=== PATIENT | female | born 1930 | race Caucasian/White ===

== ENCOUNTER → 2017-02-25 | Outpatient (CLI) | payer MEDICARE, OTHER ==
[~2017-02-25] MED LIST: ALPHA LIPOIC A200 M2 PO; ALPHA LIPOIC A200 MG PO; AMOXICILLIN/CLA1 TA1 PO; ANUSOL-HC SUPPO25 MG RC; ASPIRIN 32325 MG/TAB PO; B-121000 MCG PO; B-12500 MCG PO; BETAPACE 120MG120 MG PO; BUSPAR10 MG PO; CALCIUM500 MG PO; CARDIZEM CD 24240 MG PO; CENTRUM SILVER1 CTB PO; CEPHALEXIN500 M1 PO; CLARITIN10 MG PO; COLON HERBAL CL1 CAP PO; COUMADIN 22.5 MG/TAB PO; COUMADIN 5MG5 MG/TAB PO; CRANBERRY FRUI405 MG PO; CREON1 CAP PO; DILTIAZEM CD240 MG PO; ESTRACE0.1 MG/GM VG; ESTRADIOL VAG42.5 GM VG; FISH OIL 1000MG1 CAP PO; FLONASE NASAL S16 GM NS; FLONASEALLERGY NS; GLUCOSAMIN 500 PO; GLUCOSAMINE & C1 CA1 PO; GLUCOSAMINE & C1 CA2 PO; HYZAAR 25 MG-101 TAB PO; HYZAAR 50-12.1 UDTAB PO; K-DUR 10 MEQ T10 MEQ PO; KLOR-CON 1010 MEQ PO; LEVAQUIN 750MG750 M1 PO; LEXAPRO 5MG5 MG PO; LIPOIC ACID, DL1 POW; LOSARTAN POTASS1 TA2 PO; MELATONIN1 MG PO; MELATONIN5 M1 PO; MULTAQ400 MG PO; NATURAL E400 IU PO; NATURAL POTASS595 MG; NATURE S BLEND PO; NORCO 325 MG-51 TAB PO; NORVASC 5MG5 MG/TAB PO; OMEGA 31000 MG PO; OMEPRAZOLE20 MG PO; OS-CAL 500 + D1 TAB PO; OYSCO 500500 M1 PO; PACERONE200 MG PO; PACERONE400 MG PO; PARCOPA 25/101 UDTAB PO; POTASSIUM595 MG PO; PREMARIN0.3 MG PO; PRILOSEC 20MG20 MG PO; PROCTOSOL HC RC; PROMETHAZINE12.5 M5 PO; REQUIP 1MG T1 MG/TAB PO; SALINE 45 ML45 ML NS; SINEMET 25/101 UDTAB PO; TESSALON P100 MG/CAP PO; TIAZAC180 MG PO; TIAZAC240 MG PO; TYLENOL 500MG500 MG PO; ULTRAM 50MG TAB50 MG PO; VITAMIN A PO; VITAMIN A10k PO; VITAMIN B-1000 MCG/T PO; VITAMIN B-6100 MG PO; VITAMIN B-650 MG PO; VITAMIN C500 MG PO; VITAMIN D1000 IU PO; VITAMIN E 400 U4001 PO; XANAX .25M0.25 MG/TA PO; ZOFRAN ODT4 MG PO; [UNRECOGNIZED DRUG - OTHER] PO; [UNRECOGNIZED DRUG - OTHER] PO; [UNRECOGNIZED DRUG - REMARK] PO
== END ==
LOC: MC.RAD 15:20
DX: Z12.31 Encounter for screening mammogram for malignant neoplasm of breast (principal)

== ENCOUNTER → 2017-05-17 | Outpatient (CLI) | payer MEDICARE, OTHER | LOC: SUN.DIA 08:59 | DX: E11.9 Type 2 diabetes mellitus without complications (principal); I10 Essential (primary) hypertension; Z68.26 Body mass index [BMI] 26.0-26.9, adult; Z71.3 Dietary counseling and surveillance ==

== ENCOUNTER 2017-09-09 11:00 | Emergency (ER) | payer MEDICARE, OTHER ==
[~2017-09-09] VITALS: Ht 154.9 cm; Wt 53.6 kg
[2017-09-09 11:04] VITALS: TEMP 97.7
[2017-09-09 12:48] LABS: BASO % 0.6 % (0.0-2.0); EOS # 0.1 (0.0-0.7); EOS % 1.3 % (0-4.0); GRAN # 3.5 (1.4-6.5); GRAN % 65.7 % (42.2-75.2); HEMOGLOBIN 13.2 g/dl (12.5-16.0); LYMPH # 1.1 (1.2-3.4); MEAN CELL VOLUME 94 fl (80.0-100.0); MEAN CORPUSCULAR HEMOGLOBIN 31 pg (27.0-31.0); MEAN CORPUSCULAR HGB CONC 33 g/dl (33.0-37.0); MEAN PLATELET VOLUME 9.5 fl (7.4-10.4); MONO # 0.7 (0.1-0.6); MONO % 12.2 % (1.7-9.3); PLATELET COUNT 237 K/mm3 (130-400); RED BLOOD COUNT 4.27 M/mm3 (4.10-5.30)
[2017-09-09 13:05] LABS: PROTHROMBIN TIME 109.4 SECONDS (9.7-12.8)
[2017-09-09] MEDS ORDERED: ZEBETA10 MG PO (13:05)
[2017-09-09] MEDS ORDERED: FLOVENT DI100 MCG/Ac IH (13:05)
[2017-09-09 15:08] VITALS: BP 140/78; PULSE 60
[2017-09-12] MEDS ORDERED: COUMADIN 5MG5 MG/TAB PO (09:12)
== END 2017-09-09 15:27 | disposition home or self-care (01) ==
LOC: COL.ER 11:00
PROVIDERS: Emergency Medicine
DX: T45.511A Poisoning by anticoagulants, accidental (unintentional), initial encounter (principal); I48.91 Unspecified atrial fibrillation; J44.9 Chronic obstructive pulmonary disease, unspecified; Z79.01 Long term (current) use of anticoagulants

== ENCOUNTER → 2017-12-08 | Outpatient (CLI) | payer MEDICARE, OTHER ==
[~2017-12-08] MED LIST changes: +ALDACTONE 25MG25 M1 PO; +BETAPACE 80MG80 MG PO; +FLOVENT DI100 MCG/Ac IH; +LOVENOX 6060 MG/0.6 SQ; +ZEBETA10 MG PO
== END ==
LOC: SUN.DIA 09:55
DX: E11.9 Type 2 diabetes mellitus without complications (principal); I10 Essential (primary) hypertension; Z68.25 Body mass index [BMI] 25.0-25.9, adult; Z71.3 Dietary counseling and surveillance
CPT/HCPCS: G0108

== ENCOUNTER 2017-12-27 07:30 | Day surgery (SDC) | payer MEDICARE, OTHER ==
[~2017-12-27] VITALS: Ht 154.9 cm; Wt 52.7 kg
[~2017-12-27 07:30] MED LIST changes: -MELATONIN1 MG PO
[2017-12-27] MEDS ORDERED: EPA FISH OIL1 SGL PO (08:21)
[2017-12-27 08:37] VITALS: BP 132/67; PULSE 66; TEMP 97.4
[2017-12-27 08:46] LABS: INR 1.2 (0.8-3.0); PROTHROMBIN TIME 14.5 SECONDS (9.7-12.8)
[2017-12-27 09:35] VITALS: BP 122/75; PULSE 68; TEMP 97.6
[2017-12-27 09:50] VITALS: BP 160/98; PULSE 72
[2017-12-27 10:05] VITALS: BP 118/69; PULSE 67
[2017-12-27 10:20] VITALS: BP 127/63; PULSE 65
== END 2017-12-27 11:10 | disposition home or self-care (01) ==
LOC: SDCO 07:30
PROVIDERS: Internal Medicine Pulmonary Disease
DX: A31.0 Pulmonary mycobacterial infection (principal); J45.20 Mild intermittent asthma, uncomplicated; R93.8 Abnormal findings on diagnostic imaging of other specified body structures; I10 Essential (primary) hypertension; G20 Parkinson's disease; E11.9 Type 2 diabetes mellitus without complications; J32.9 Chronic sinusitis, unspecified; J30.9 Allergic rhinitis, unspecified; J47.9 Bronchiectasis, uncomplicated; J15.9 Unspecified bacterial pneumonia; F32.9 Major depressive disorder, single episode, unspecified; F41.9 Anxiety disorder, unspecified; K21.9 Gastro-esophageal reflux disease without esophagitis; Z88.2 Allergy status to sulfonamides; Z79.01 Long term (current) use of anticoagulants; Z85.828 Personal history of other malignant neoplasm of skin; Z86.018 Personal history of other benign neoplasm; Z86.73 Personal history of transient ischemic attack (TIA), and cerebral infarction without residual deficits
CPT/HCPCS: J2704; J7030

== ENCOUNTER → 2018-03-14 | Outpatient (CLI) | payer MEDICARE, OTHER ==
[~2018-03-14] MED LIST changes: +EPA FISH OIL1 SGL PO
== END ==
LOC: MC.RAD 13:20
DX: Z12.31 Encounter for screening mammogram for malignant neoplasm of breast (principal)

== ENCOUNTER 2018-05-31 11:51 | Day surgery (SDC) | payer MEDICARE, OTHER ==
[2018-05-31 12:38] LABS: HEMATOCRIT 37.6 % (37.0-47.0); HEMOGLOBIN 12.3 g/dl (12.5-16.0); MEAN CELL VOLUME 91 fl (80.0-100.0); MEAN CORPUSCULAR HEMOGLOBIN 30 pg (27.0-31.0); MEAN CORPUSCULAR HGB CONC 33 g/dl (33.0-37.0); MEAN PLATELET VOLUME 9.1 fl (7.4-10.4); RED BLOOD COUNT 4.15 M/mm3 (4.10-5.30)
[2018-05-31 12:48] LABS: INR 2.8 (0.8-3.0); PROTHROMBIN TIME 32.2 SECONDS (9.7-12.8)
[2018-05-31 12:53] LABS: PLATELET COUNT 1162 K/mm3 (130-400)
[2018-05-31 12:59] LABS: CREATININE, serum 0.47 mg/dL (0.52-1.25); POTASSIUM 4.4 mmol/L (3.4-5.0)
[2018-05-31 13:15] VITALS: BP 126/67; PULSE 64
[2018-05-31] MEDS ORDERED: COUMADIN 5MG5 MG/TAB PO (13:44)
[2018-05-31] MEDS ORDERED: FLOVENT 110MCG7.9 GM IH (13:50)
[2018-05-31 13:54] LABS: BASO % 0.4 % (0.0-2.0); EOS # 0.1 (0.0-0.7); EOS % 1.9 % (0-4.0); GRAN # 4.7 (1.4-6.5); GRAN % 69.4 % (42.2-75.2); HEMOGLOBIN 11.9 g/dl (12.5-16.0); LYMPH # 1.2 (1.2-3.4); LYMPH % 17.1 % (20.0-51.0); MEAN CELL VOLUME 90 fl (80.0-100.0); MEAN CORPUSCULAR HEMOGLOBIN 29 pg (27.0-31.0); MEAN CORPUSCULAR HGB CONC 33 g/dl (33.0-37.0); MEAN PLATELET VOLUME 9.2 fl (7.4-10.4); MONO # 0.7 (0.1-0.6); MONO % 10.6 % (1.7-9.3); PLATELET COUNT 1039 K/mm3 (130-400); RED BLOOD COUNT 4.08 M/mm3 (4.10-5.30)
[2018-05-31 13:55] LABS: HEMATOCRIT 36.6 % (37.0-47.0)
[2018-05-31] MEDS ORDERED: BETAPACE 120MG120 MG PO (14:04)
[2018-05-31] MEDS ORDERED: ALDACTONE50 MG PO (14:21)
== END 2018-05-31 14:54 | disposition home or self-care (01) ==
LOC: COL.CAR 11:51
PROVIDERS: Internal Medicine Cardiovascular Disease; Nurse Practitioner
DX: I48.0 Paroxysmal atrial fibrillation (principal); I10 Essential (primary) hypertension; Z86.73 Personal history of transient ischemic attack (TIA), and cerebral infarction without residual deficits; I08.1 Rheumatic disorders of both mitral and tricuspid valves; F32.9 Major depressive disorder, single episode, unspecified; F41.9 Anxiety disorder, unspecified; Z85.820 Personal history of malignant melanoma of skin; M19.90 Unspecified osteoarthritis, unspecified site; A31.0 Pulmonary mycobacterial infection; Z87.11 Personal history of peptic ulcer disease; Z79.01 Long term (current) use of anticoagulants; Z82.49 Family history of ischemic heart disease and other diseases of the circulatory system; Z84.1 Family history of disorders of kidney and ureter

== ENCOUNTER → 2018-06-14 | Outpatient (CLI) | payer MEDICARE, OTHER ==
[~2018-06-14] MED LIST changes: +ALDACTONE50 MG PO; +FLOVENT 110MCG7.9 GM IH
== END ==
LOC: SUN.DIA 12:55
DX: E11.9 Type 2 diabetes mellitus without complications (principal); I10 Essential (primary) hypertension

== ENCOUNTER 2018-09-10 14:34 | Emergency (ER) | payer OTHER ==
[~2018-09-10] VITALS: Ht 152.4 cm; Wt 45.5 kg
[2018-09-10 14:47] VITALS: BP 135/76; TEMP 96.8
[2018-09-10 16:16] LABS: BASO % 0.3 % (0.0-2.0); EOS # 0.1 (0.0-0.7); EOS % 0.8 % (0-4.0); GRAN # 8.6 (1.4-6.5); GRAN % 76.9 % (42.2-75.2); HEMOGLOBIN 11.2 g/dl (12.5-16.0); LYMPH # 1.3 (1.2-3.4); LYMPH % 11.4 % (20.0-51.0); MEAN CELL VOLUME 87 fl (80.0-100.0); MEAN CORPUSCULAR HEMOGLOBIN 29 pg (27.0-31.0); MEAN CORPUSCULAR HGB CONC 33 g/dl (33.0-37.0); MEAN PLATELET VOLUME 9.1 fl (7.4-10.4); MONO # 1.2 (0.1-0.6); MONO % 10.2 % (1.7-9.3); PLATELET COUNT 728 K/mm3 (130-400); REDCELL DISTRIBUTION WIDTH-CV 14.7 % (11.5-14.5)
[2018-09-10 16:17] LABS: HEMATOCRIT 33.8 % (37.0-47.0)
[2018-09-10 16:30] LABS: ALANINE AMINOTRANSFERASE < 6 U/L (9-52); ALBUMIN 3.8 gm/dL (3.5-5.0); ALKALINE PHOSPHATASE 80 U/L (50-136); ANION GAP 9 mmol/L (7-16); AST,SGOT 19 U/L (15-37); BILIRUBIN,TOTAL 0.5 mg/dL (0.0-1.0); BLOOD UREA NITROGEN 26 mg/dL (7-17); C-REACTIVE PROTEIN 4.6 mg/dL (0.0-0.9); CALCIUM 8.9 mg/dL (8.4-10.2); CARBON DIOXIDE 26 mmol/L (22-30); CHLORIDE 96 mmol/L (98-107); CREATININE, serum 0.51 mg/dL (0.52-1.25); GLUCOSE 109 mg/dL (74-106); POTASSIUM 4.6 mmol/L (3.4-5.0); SODIUM 131 mmol/L (137-145)
[2018-09-10 16:39] LABS: TROPONIN-I < 0.012 ng/mL (0.000-0.034)
[2018-09-10 17:13] LABS: COLLECTION METHOD CLEAN CATCH
[2018-09-10 17:19] LABS: PH 6 (5-8); SQUAMOUS EPITHELIAL 0-2 /hpf; URINE APPEARANCE Clear; URINE BACTERIA None Seen /hpf; URINE BILIRUBIN Negative (NEGATIVE); URINE BLOOD Negative (NEGATIVE); URINE COLOR Yellow; URINE GLUCOSE Negative (NEGATIVE); URINE KETONE Negative (NEGATIVE); URINE LEUKOCYTE ESTERASE Negative (NEGATIVE); URINE NITRATE Negative (NEGATIVE); URINE PROTEIN(semi-quant) Negative (NEGATIVE); URINE RBC 0-2 /hpf; URINE UROBILINOGEN Negative (NEGATIVE)
[2018-09-10 17:43] LABS: INR 1.4 (0.8-3.0); PROTHROMBIN TIME 15.4 SECONDS (9.7-12.8)
[2018-09-10 18:12] VITALS: PULSE 74
== END 2018-09-10 18:12 | disposition home or self-care (01) ==
LOC: COL.ER 14:34
PROVIDERS: Emergency Medicine
DX: J20.9 Acute bronchitis, unspecified (principal); J44.9 Chronic obstructive pulmonary disease, unspecified; A31.0 Pulmonary mycobacterial infection; I10 Essential (primary) hypertension; G20 Parkinson's disease; I48.91 Unspecified atrial fibrillation; Z79.51 Long term (current) use of inhaled steroids; Z79.01 Long term (current) use of anticoagulants
CPT/HCPCS: J7030

== ENCOUNTER 2018-09-20 12:39 | Inpatient (IN) | payer MEDICARE, OTHER ==
[~2018-09-20] VITALS: Ht 152.4 cm; Wt 47.6 kg
[2018-09-20 14:35] LABS: BASO % 0.2 % (0.0-2.0); EOS # 0.1 (0.0-0.7); EOS % 0.5 % (0-4.0); GRAN # 7.8 (1.4-6.5); GRAN % 81.6 % (42.2-75.2); LYMPH # 0.7 (1.2-3.4); LYMPH % 7.4 % (20.0-51.0); MEAN CELL VOLUME 85 fl (80.0-100.0); MEAN CORPUSCULAR HEMOGLOBIN 29 pg (27.0-31.0); MEAN CORPUSCULAR HGB CONC 34 g/dl (33.0-37.0); MEAN PLATELET VOLUME 8.9 fl (7.4-10.4); MONO # 0.9 (0.1-0.6); MONO % 9.8 % (1.7-9.3); PLATELET COUNT 774 K/mm3 (130-400); RED BLOOD COUNT 3.42 M/mm3 (4.10-5.30); REDCELL DISTRIBUTION WIDTH-CV 14.7 % (11.5-14.5)
[2018-09-20 14:38] LABS: ALANINE AMINOTRANSFERASE 14 U/L (9-52); ALBUMIN 3.3 gm/dL (3.5-5.0); ALKALINE PHOSPHATASE 105 U/L (50-136); ANION GAP 9 mmol/L (7-16); AST,SGOT 26 U/L (15-37); BILIRUBIN,TOTAL 0.6 mg/dL (0.0-1.0); BLOOD UREA NITROGEN 17 mg/dL (7-17); CALCIUM 8.4 mg/dL (8.4-10.2); CARBON DIOXIDE 24 mmol/L (22-30); CREATININE, serum 0.34 mg/dL (0.52-1.25); GLUCOSE 98 mg/dL (74-106); LIPASE 189 U/L (23-300); POTASSIUM 4.8 mmol/L (3.4-5.0); TOTAL PROTEIN 6.3 gm/dL (6.4-8.2)
[2018-09-20 14:40] LABS: HEMATOCRIT 29.2 % (37.0-47.0)
[2018-09-20 14:42] LABS: CHLORIDE 85 mmol/L (98-107); SODIUM 118 mmol/L (137-145)
[2018-09-20 14:56] LABS: TROPONIN-I < 0.012 ng/mL (0.000-0.034)
[2018-09-20 15:22] LABS: INR 1.8 (0.8-3.0)
--- NOTE | 2018-09-20 18:22 | NUR ---
Dr. Moscoso in to see patient.
--- NOTE | 2018-09-20 18:22 | NUR ---
Pt arrives to medical floor. Alert, oriented. IV intact to left forearm.
[2018-09-20 18:56] VITALS: BP 133/88; PULSE 84; TEMP 97.6
--- NOTE | 2018-09-20 19:16 | NUR ---
Report given to RACHID Nicholas. Pt resting in bed.
[2018-09-20 19:27] LABS: COLLECTION METHOD CLEAN CATCH
[2018-09-20 19:32] VITALS: BP 123/70; PULSE 74; TEMP 98.2
[2018-09-20 19:33] LABS: MUCOUS Present /lpf; PH 6 (5-8); SQUAMOUS EPITHELIAL 0-2 /hpf; URINE APPEARANCE Clear; URINE BACTERIA None Seen /hpf; URINE BILIRUBIN Negative (NEGATIVE); URINE BLOOD Negative (NEGATIVE); URINE COLOR Yellow; URINE GLUCOSE Negative (NEGATIVE); URINE KETONE 1+ (NEGATIVE); URINE LEUKOCYTE ESTERASE Negative (NEGATIVE); URINE NITRATE Negative (NEGATIVE); URINE PROTEIN(semi-quant) Negative (NEGATIVE); URINE RBC 0-2 /hpf; URINE UROBILINOGEN Negative (NEGATIVE)
--- NOTE | 2018-09-20 20:34 | NUR ---
PATIENT BROUGHT HER ACAPELLA INTO HOSPITAL FROM HOME.
--- NOTE | 2018-09-20 21:00 | NUR ---
Initial shift assessment/admit info done at this time- pleasant, oriented x4. VSS. On Tele- afib,, Up to bathroom with standby assist-tolerated well, back to bed, Water taken out of room, informed pt since her sodium is low, no water-- juice given to pt at this time.
[2018-09-21 00:20] VITALS: BP 107/54; PULSE 84; TEMP 97.7
--- NOTE | 2018-09-21 01:00 | NUR ---
Roslyn FERMIN called with NA level 117-- order for no free water- will recheck again at 0500- IV fluids remain NS at 125cc/hr.
[2018-09-21 04:10] VITALS: BP 125/74; PULSE 74; TEMP 98.5
--- NOTE | 2018-09-21 05:55 | NUR ---
Quiet night-- has been resting well for the past 3-4 hours,, UP to bathroom 3-4 times during the night- voiding 150cc each time.
[2018-09-21 06:18] LABS: BASO % 0.1 % (0.0-2.0); EOS # 0.1 (0.0-0.7); GRAN # 8.6 (1.4-6.5); GRAN % 80.8 % (42.2-75.2); HEMOGLOBIN 10.5 g/dl (12.5-16.0); LYMPH # 0.9 (1.2-3.4); LYMPH % 8.3 % (20.0-51.0); MEAN CELL VOLUME 86 fl (80.0-100.0); MEAN CORPUSCULAR HEMOGLOBIN 29 pg (27.0-31.0); MEAN CORPUSCULAR HGB CONC 34 g/dl (33.0-37.0); MONO % 9.2 % (1.7-9.3); PLATELET COUNT 784 K/mm3 (130-400); RED BLOOD COUNT 3.62 M/mm3 (4.10-5.30); REDCELL DISTRIBUTION WIDTH-CV 14.5 % (11.5-14.5)
[2018-09-21 06:21] LABS: HEMATOCRIT 31.2 % (37.0-47.0)
[2018-09-21 06:32] LABS: CALCIUM 8.2 mg/dL (8.4-10.2); CREATININE, serum 0.37 mg/dL (0.52-1.25); POTASSIUM 4.5 mmol/L (3.4-5.0)
[2018-09-21 08:22] VITALS: BP 132/74; PULSE 73; TEMP 97.9
--- NOTE | 2018-09-21 08:45 | NUR ---
Physicla assessmetn completed, pt curling hair and independent in room. Fluids infusing, IV site s redness/swelling. A+Ox3. denies needs
[2018-09-21 12:39] VITALS: BP 114/63; PULSE 60; TEMP 98.7
--- NOTE | 2018-09-21 14:59 | NUR ---
ALDO and ALDO student met with patient to discuss discharge planning. Patient lives at [facility] in independent living. She uses a cane to ambulate but also has a walker. Patients PCP is Dr Christianson and she obtains her medications from [facility] or [facility] mail order. Patient is wanting to dc today however the dr is waiting on the results of some of her tests. Patient will DC to [facility] when able. ALDO faxed update to [facility].
--- NOTE | 2018-09-21 19:32 | NUR ---
rEPORT GIVEN TO CHRISTY RASHID, PT DENIES NEEDS
--- NOTE | 2018-09-21 19:33 | NUR ---
Pt had uneventful day, vitals stbale, Na has not imrpoved much, fluids frequently interrupted for procedures. Free water restriction.
[2018-09-21 19:40] VITALS: BP 93/68; PULSE 77; TEMP 97.5
--- NOTE | 2018-09-21 20:30 | NUR ---
Intial shift assessment done- denies pain, Up in room ,steady on feet. IV fluids of NS at 125cc/hr, Tele on, Put a hat in toilet to measure urine output- was started on p.o lasix tonight-
[2018-09-22] VITALS (7 sets, daily range): BP systolic 102–126; BP diastolic 54–69; PULSE 72–109; TEMP 97.4–97.8
--- NOTE | 2018-09-22 03:20 | NUR ---
PT REQUEST TO SLEEP, NO RESP DISTRESS NOTED. SPO2 93% ON [place], HR 68, RR 16. PT WILL CALL IF SOB OCCURES.
[2018-09-22 06:11] LABS: BASO % 0.2 % (0.0-2.0); EOS # 0.1 (0.0-0.7); GRAN # 7.6 (1.4-6.5); GRAN % 77.2 % (42.2-75.2); HEMOGLOBIN 10.3 g/dl (12.5-16.0); LYMPH # 0.8 (1.2-3.4); LYMPH % 7.9 % (20.0-51.0); MEAN CELL VOLUME 86 fl (80.0-100.0); MEAN CORPUSCULAR HEMOGLOBIN 29 pg (27.0-31.0); MEAN CORPUSCULAR HGB CONC 34 g/dl (33.0-37.0); MONO # 1.3 (0.1-0.6); PLATELET COUNT 701 K/mm3 (130-400); RED BLOOD COUNT 3.56 M/mm3 (4.10-5.30); REDCELL DISTRIBUTION WIDTH-CV 14.6 % (11.5-14.5)
[2018-09-22 06:16] LABS: HEMATOCRIT 30.6 % (37.0-47.0)
[2018-09-22 06:23] LABS: CALCIUM 8.4 mg/dL (8.4-10.2); CREATININE, serum 0.42 mg/dL (0.52-1.25)
--- NOTE | 2018-09-22 06:30 | NUR ---
Slept fair most of the night- no changes--VSS,no requests at this time
--- NOTE | 2018-09-22 08:26 | NUR ---
pt is A+Ox3, pleasant, standing at sink washing face. Denies pain, dizziness, SOB. Physical assessment complete. IV to LFA s redness/swelling. Pt is verbally compliant with no free water restriction and I+O measuring. No furthr needs, call light in reach
--- NOTE | 2018-09-22 10:59 | NUR ---
ALDO and ALDO student attended clinical rounding. Patient is anxious to go home today as she reports she has an appointment this afternoon. is wanting to keep her at least another day but will check labs again this afternoon. ALDO will update [facility] when discharge is known.
--- NOTE | 2018-09-22 12:40 | NUR ---
First visit from the telegraph office route aide. No needs right now.
--- NOTE | 2018-09-22 17:16 | NUR ---
Report given to Krysta RN, pt resting in bed
--- NOTE | 2018-09-22 17:57 | NUR ---
Pt had unventful day, vitals stable, sodium increased to 120 but fluids d/c per dr Portillo. Pt denies pain, SOB, walking around room indep.
[2018-09-23 03:30] VITALS: BP 119/88; PULSE 66; TEMP 97.5
--- NOTE | 2018-09-23 08:09 | NUR ---
PT HAD UNEVENTFUL NOC. NO C/O PAIN, NO NOTED N/V/D. NO ISSUES OR CONERNS VOICED.
[2018-09-23 09:04] LABS: BASO % 0.4 % (0.0-2.0); EOS # 0.1 (0.0-0.7); EOS % 1.3 % (0-4.0); GRAN # 5.9 (1.4-6.5); GRAN % 71.7 % (42.2-75.2); HEMOGLOBIN 11.1 g/dl (12.5-16.0); LYMPH # 0.9 (1.2-3.4); LYMPH % 10.7 % (20.0-51.0); MEAN CELL VOLUME 87 fl (80.0-100.0); MEAN CORPUSCULAR HEMOGLOBIN 29 pg (27.0-31.0); MEAN CORPUSCULAR HGB CONC 34 g/dl (33.0-37.0); MEAN PLATELET VOLUME 8.9 fl (7.4-10.4); MONO # 1.3 (0.1-0.6); MONO % 15.3 % (1.7-9.3); PLATELET COUNT 770 K/mm3 (130-400); REDCELL DISTRIBUTION WIDTH-CV 14.8 % (11.5-14.5)
[2018-09-23 09:09] VITALS: BP 119/76; PULSE 74; TEMP 98.8
[2018-09-23 09:13] LABS: CALCIUM 8.6 mg/dL (8.4-10.2); CREATININE, serum 0.4 mg/dL (0.52-1.25); POTASSIUM 4.1 mmol/L (3.4-5.0)
--- NOTE | 2018-09-23 09:56 | NUR ---
PATIENT ASSESSMENT COMPLETED. SHE DENIES ANY COMPLAINTS AT THIS TIME. DRINKING JUICE TOLERATES BREAKFAST WELL.
[2018-09-23 10:02] LABS: INR 1.4 (0.8-3.0); PROTHROMBIN TIME 16.3 SECONDS (9.7-12.8)
[2018-09-23 11:56] VITALS: BP 120/71; PULSE 66; TEMP 97.6
[2018-09-23] MEDS ORDERED: NORVASC2.5 MG PO (11:59)
[2018-09-23] MEDS ORDERED: LASIX 20MG TABL20 MG PO (11:59)
--- NOTE | 2018-09-23 13:20 | NUR ---
PATIENT DISCHARGE INSTRUCTIONS GIVEN TO PATIENT. SHE DENIES ANY QUESTIONS. AND IS ABLE TO RECALL WHEN LAB AND DR. APPOINTMENTS ARE NEEDED. BELONGINGS ARE GATHERED.
--- NOTE | 2018-09-23 13:40 | NUR ---
PATIENT DISCHARGED TO HOME VIA WHEELCHAIR WITH BELONGINGS. DENIES OTHER NEEDS OR QUESTIONS
== END 2018-09-23 13:30 | disposition home or self-care (01) | DRG 291 ==
LOC: COL.ER 12:39 → MEDICAL 16:24
PROVIDERS: Emergency Medicine; Hospitalist; Physician Assistant; ADMIT Hospitalist
DX: I11.0 Hypertensive heart disease with heart failure (principal); I50.31 Acute diastolic (congestive) heart failure; E87.1 Hypo-osmolality and hyponatremia; E46 Unspecified protein-calorie malnutrition; R06.00 Dyspnea, unspecified; D53.9 Nutritional anemia, unspecified; I48.2 Chronic atrial fibrillation; K21.9 Gastro-esophageal reflux disease without esophagitis; G20 Parkinson's disease; E87.8 Other disorders of electrolyte and fluid balance, not elsewhere classified; D47.3 Essential (hemorrhagic) thrombocythemia; J40 Bronchitis, not specified as acute or chronic; I36.1 Nonrheumatic tricuspid (valve) insufficiency; I34.0 Nonrheumatic mitral (valve) insufficiency
CPT/HCPCS: 99232-AI; 99233-AI; G0378; J7030; J7040; Q9967

== ENCOUNTER 2018-11-06 09:19 | Emergency (ER) | payer MEDICARE, OTHER ==
[~2018-11-06] VITALS: Ht 152.4 cm; Wt 46.8 kg
[~2018-11-06 09:19] MED LIST changes: +LASIX 20MG TABL20 MG PO; +NORVASC2.5 MG PO
[2018-11-06 10:00] VITALS: TEMP 98.3
[2018-11-06 10:47] LABS: BASO % 0.2 % (0.0-2.0); EOS % 0.3 % (0-4.0); GRAN # 8.3 (1.4-6.5); HEMOGLOBIN 10.9 g/dl (12.5-16.0); LYMPH # 0.8 (1.2-3.4); LYMPH % 7.9 % (20.0-51.0); MEAN CELL VOLUME 91 fl (80.0-100.0); MEAN CORPUSCULAR HEMOGLOBIN 29 pg (27.0-31.0); MEAN CORPUSCULAR HGB CONC 32 g/dl (33.0-37.0); MEAN PLATELET VOLUME 9.3 fl (7.4-10.4); MONO # 0.7 (0.1-0.6); MONO % 7.1 % (1.7-9.3); PLATELET COUNT 510 K/mm3 (130-400); RED BLOOD COUNT 3.75 M/mm3 (4.10-5.30); REDCELL DISTRIBUTION WIDTH-CV 16.4 % (11.5-14.5)
[2018-11-06 10:48] LABS: HEMATOCRIT 34.1 % (37.0-47.0)
[2018-11-06 11:07] LABS: BILIRUBIN,TOTAL 0.6 mg/dL (0.0-1.0); C-REACTIVE PROTEIN 6.4 mg/dL (0.0-0.9); CALCIUM 8.1 mg/dL (8.4-10.2); CREATININE, serum 0.57 mg/dL (0.52-1.25); POTASSIUM 3.4 mmol/L (3.4-5.0); TOTAL PROTEIN 6.2 gm/dL (6.4-8.2)
[2018-11-06 12:30] VITALS: BP 96/66; PULSE 76
== END 2018-11-06 12:37 | disposition home or self-care (01) ==
LOC: COL.ER 09:19
PROVIDERS: Family Medicine
DX: J44.9 Chronic obstructive pulmonary disease, unspecified (principal); J98.4 Other disorders of lung; I50.9 Heart failure, unspecified; I48.91 Unspecified atrial fibrillation; Z87.891 Personal history of nicotine dependence; Z79.51 Long term (current) use of inhaled steroids

== ENCOUNTER 2019-02-08 08:22 | Day surgery (SDC) | payer MEDICARE, OTHER ==
[2019-02-08] VITALS (9 sets, daily range): BP systolic 99–118; BP diastolic 57–88; PULSE 43–67; TEMP 97.5–97.7
[~2019-02-08] VITALS: Ht 152.5 cm; Wt 45.9 kg
[~2019-02-08 08:22] MED LIST changes: -CRANBERRY FRUI405 MG PO; +CRANBERRY500 M3 PO; -VITAMIN D1000 IU PO; +VITAMIN D31000 I1 PO
[2019-02-08] MEDS ORDERED: ALPHA LIPOIC A200 M2 PO (08:45)
[2019-02-08 09:13] LABS: HEMOGLOBIN 11.6 g/dl (12.5-16.0); MEAN CELL VOLUME 113 fl (80.0-100.0); MEAN CORPUSCULAR HEMOGLOBIN 37 pg (27.0-31.0); MEAN CORPUSCULAR HGB CONC 33 g/dl (33.0-37.0); MEAN PLATELET VOLUME 9.1 fl (7.4-10.4); PLATELET COUNT 314 K/mm3 (130-400); RED BLOOD COUNT 3.16 M/mm3 (4.10-5.30); REDCELL DISTRIBUTION WIDTH-CV 18.2 % (11.5-14.5)
[2019-02-08 09:16] LABS: CALCIUM 9.1 mg/dL (8.4-10.2); CREATININE, serum 0.7 (0.52-1.25); POTASSIUM 4.2 mmol/L (3.4-5.0)
[2019-02-08 09:18] LABS: INR 1.2 (0.8-3.0); PROTHROMBIN TIME 14.2 SECONDS (9.7-12.8)
[2019-02-08] MEDS ORDERED: LASIX 40MG TABL40 MG PO (09:26)
[2019-02-08] MEDS ORDERED: ZOFRAN 4MG T4 MG/TAB PO (09:28)
[2019-02-08 09:29] LABS: HEMATOCRIT 35.6 % (37.0-47.0)
[2019-02-08] MEDS ORDERED: ELDEPRYL 5MG5 MG/CAP PO (09:31)
[2019-02-08] MEDS ORDERED: COUMADIN 5MG5 MG/TAB PO (09:36)
[2019-02-08] MEDS ORDERED: ALDACTONE 25MG25 M1 PO (09:41)
[2019-02-08] MEDS ORDERED: TAMBOCOR 1100 MG/TAB PO (09:48)
[2019-02-08] MEDS ORDERED: TOPROL XL 50MG50 MG PO (09:49)
--- NOTE | 2019-02-08 11:30 | NUR ---
LUPE/CV complete per Polo RASHID from pit laborer. Pt pulse is low after CV, will continue to assess. Dr. Dunn will see pt again before discharge.
--- NOTE | 2019-02-08 13:38 | NUR ---
Pt HR dropped to the 30's while Dr. Dunn in room. Dr. Dunn observed and strips in chart.
--- NOTE | 2019-02-08 13:40 | NUR ---
Dr. Dunn in room to see pt. Pt cleared for discharged per Dr. Dunn.
--- NOTE | 2019-02-08 14:15 | NUR ---
Pt has ambulated with cane and SBA, voided and yandy PO intake s n/v.
--- NOTE | 2019-02-08 14:30 | NUR ---
PIV removed with catheter intact.
--- NOTE | 2019-02-08 14:35 | NUR ---
Pt discharged per w/c by [facility] who will take pt to Dr. Dunn's office for [facility] monitor.
== END 2019-02-08 14:48 | disposition home or self-care (01) ==
LOC: COL.CAR 08:22
PROVIDERS: Internal Medicine Cardiovascular Disease
DX: I48.0 Paroxysmal atrial fibrillation (principal); I48.92 Unspecified atrial flutter; Z79.52 Long term (current) use of systemic steroids; Z79.01 Long term (current) use of anticoagulants; I10 Essential (primary) hypertension; K21.9 Gastro-esophageal reflux disease without esophagitis; M19.90 Unspecified osteoarthritis, unspecified site; Z88.2 Allergy status to sulfonamides; Z88.1 Allergy status to other antibiotic agents; Z88.5 Allergy status to narcotic agent; I27.20 Pulmonary hypertension, unspecified; J84.9 Interstitial pulmonary disease, unspecified; Z86.73 Personal history of transient ischemic attack (TIA), and cerebral infarction without residual deficits; F32.9 Major depressive disorder, single episode, unspecified; F41.9 Anxiety disorder, unspecified; G20 Parkinson's disease
CPT/HCPCS: J2704; J3010

== ENCOUNTER 2019-02-20 07:21 | Observation (INO) | payer MEDICARE, OTHER ==
[2019-02-20] VITALS (8 sets, daily range): BP systolic 94–170; BP diastolic 68–98; PULSE 64–79; TEMP 97.6–98.6
[~2019-02-20] VITALS: Ht 152.7 cm; Wt 45.0 kg
[~2019-02-20 07:21] MED LIST changes: +ELDEPRYL 5MG5 MG/CAP PO; +LASIX 40MG TABL40 MG PO; +TAMBOCOR 1100 MG/TAB PO; +TOPROL XL 50MG50 MG PO; +ZOFRAN 4MG T4 MG/TAB PO
[2019-02-20 08:07] LABS: HEMATOCRIT 37.6 % (37.0-47.0); HEMOGLOBIN 12.1 g/dl (12.5-16.0); MEAN CELL VOLUME 115 fl (80.0-100.0); MEAN CORPUSCULAR HEMOGLOBIN 37 pg (27.0-31.0); MEAN CORPUSCULAR HGB CONC 32 g/dl (33.0-37.0); PLATELET COUNT 262 K/mm3 (130-400); RED BLOOD COUNT 3.27 M/mm3 (4.10-5.30)
[2019-02-20 08:11] LABS: INR 1.3 (0.8-3.0); PROTHROMBIN TIME 15.6 SECONDS (9.7-12.8)
[2019-02-20 08:26] LABS: CALCIUM 9.2 mg/dL (8.4-10.2); CREATININE, serum 0.53 (0.52-1.25)
--- NOTE | 2019-02-20 10:59 | NUR ---
PLEASE SEE MERGE FOR ALL MEDICATION ADMINISTRATION TIMES,FOR A SEDATION ASESSMENT DATA INTRA AND POST PROCEDURE.
--- NOTE | 2019-02-20 14:00 | NUR ---
Pt arrived to room 358 from optical laboratory mechanic post pacemaker. She is awake and A/Ox4, sitting up in bed. Left arm remains in sling, dressing to left upper chest is CDI. Ice pack applied per order. Saline lock to left FA is free of complications. Medications/allergies/pharm reviewed. Pt denies any other needs.
--- NOTE | 2019-02-20 20:00 | NUR ---
Shift assessment complete. Pt resting in bed, awake, a&o, cooperative c cares. Pt denies pain or other c/o at this time. INT patent. Pacemeker incision noted to L chest, s redness/edema/drainage; gauze dressing C/D/I. L arm sling in place. Tele in place. Pt denies needs at this time. Call light in reach, will monitor.
[2019-02-21] VITALS (7 sets, daily range): BP systolic 95–151; BP diastolic 48–93; PULSE 86–104; TEMP 97.4–98.6
--- NOTE | 2019-02-21 03:15 | NUR ---
ELECTROMECHANICAL ASSEMBLER rounding on pt et found her to be nude. Pt c/o having diarrhea et soiling her gown, states "no one came to help me". Pt has been a&o, ind to BR c cane et steady gait. Pt never used call light to request assistance. ELECTROMECHANICAL ASSEMBLER left the room to get the pt a new gown, reports pt was sitting in bed. When ELECTROMECHANICAL ASSEMBLER got back to the room, pt was sitting on the floor at the foot of the bed c lac to forehead et skin tear to R elbow. Pt appeared to be going through personal belongings for new clothes. ELECTROMECHANICAL ASSEMBLER notified this nurse. This nurse notifed cook house laborer who was on the unit. Pt assisted back to bed. VSS. Skin tear to R elbow dressed c steri strips, gauze et tegaderm. Laceration noted to R forehead c surrounding ecchymosis, dressed c gauze et tegaderm. Pt reports some pain to forehead, denies need for intervention. Denies any other c/o.
--- NOTE | 2019-02-21 03:31 | NUR ---
Dr. Starks notified of patient fall. CT head ordered. Hold blood thinners. RN and Land Leases And Rentals Manager at bedside.
--- NOTE | 2019-02-21 03:45 | NUR ---
technology internship called et notified of stat head CT.
--- NOTE | 2019-02-21 03:59 | NUR ---
Pt to CT at this time.
--- NOTE | 2019-02-21 07:17 | NUR ---
Received and completed bedside reoprt. Patient is observed laying in bed with eyes closed. Is slow to respond in a soft voice, does know first and last name, will follow commands and is slow to do so. Pupils are unequal and sluggish but has not changed per reporting nurse. It is reported that her responses have improved since having CT scan which is noted to have only age related changes. Non-stick bandage is noted to be to right forehead which is raised. There is also a bandage noted to right elbow/upper arm which is intact. Respirations are even and non-labored. Call light is within reach.
[2019-02-21 07:32] LABS: BASO % 0.7 % (0.0-2.0); EOS % 0.7 % (0-4.0); GRAN # 2.4 (1.4-6.5); GRAN % 88.7 % (42.2-75.2); HEMATOCRIT 39.1 % (37.0-47.0); HEMOGLOBIN 12.7 g/dl (12.5-16.0); LYMPH # 0.1 (1.2-3.4); LYMPH % 3.3 % (20.0-51.0); MEAN CELL VOLUME 114 fl (80.0-100.0); MEAN CORPUSCULAR HEMOGLOBIN 37 pg (27.0-31.0); MEAN CORPUSCULAR HGB CONC 33 g/dl (33.0-37.0); MEAN PLATELET VOLUME 9.6 fl (7.4-10.4); MONO # 0.2 (0.1-0.6); MONO % 5.9 % (1.7-9.3); PLATELET COUNT 240 K/mm3 (130-400); RED BLOOD COUNT 3.42 M/mm3 (4.10-5.30); REDCELL DISTRIBUTION WIDTH-CV 15.9 % (11.5-14.5)
[2019-02-21 07:42] LABS: CALCIUM 8.8 mg/dL (8.4-10.2); CREATININE, serum 0.56 (0.52-1.25); POTASSIUM 3.9 mmol/L (3.4-5.0)
--- NOTE | 2019-02-21 09:59 | NUR ---
Patients cognition is noted to be improved, she has gotten up to the commode with assist, speech is clear, she has kept eyes open and was assisted with ordering breakfast and currently is sitting up in bed eating. Alarms remain in place. Pacemaker was checked this morning and instructions given to remove dressing and leave incision open to air. Call light and personal items remain within reach.
--- NOTE | 2019-02-21 14:56 | NUR ---
Patient has increasingly become more alert. This morning was able to sit up in bed and feed self breakfast. Pupils remained unequal and sluggish. Patient was more oriented to self and place. Speech clairity improved. Was able to get up to bedside commode with assist of one. At this time patient is in the restroom, continent of loose stools. Is completely oriented x4. Gait is fair, better with use of cane. Neuro checks are within normal limits aside from unequal pupils. States she has slight pain to the head and arm. No further needs identified. Call light and personal belongings are within reach.
--- NOTE | 2019-02-21 16:06 | NUR ---
SW met with patient about discharge planning. Patient lives independently at home [facility]. Patient's PCP is Dr Christianson and she reports he medications are mailed to her apartment. Patient has a four wheeled walker and cane for ambulation. Patient has used [facility] in the past but no services currently. Patient will be seen by PT and OT for discharge recommendations. ALDO will continue to follow.
--- NOTE | 2019-02-21 18:26 | NUR ---
Patient is noted to be completely alert and oriented. Gait has been fair with cane while ambulating to restroom. Appetite is good. Answers all questions appropriately. Denies having any pain. Personal items and call light is within reach.
--- NOTE | 2019-02-21 20:00 | NUR ---
PT A/O X4, SITTING UP IN BED. PT DENIES PAIN OR DISCOMFORT AT THIS TIME. PT HAS DRSG OVER RIGHT SIDE OF FOREHEAD FROM FALL LAST NIGHT. PT HAS NO NEEDS AT THIS TIME, CALL LIGHT WITHIN REACH.
--- NOTE | 2019-02-22 02:21 | NUR ---
PT RESTING IN BED HAS BEEN UP TO THE BATHROOM X1 ASSIST A FEW TIMES THIS NIGHT. PT DENIES PAIN OR DISCOMFORT. CALL LIGHT WITHIN REACH.
[2019-02-22 03:09] VITALS: BP 97/50; PULSE 66; TEMP 97.6
--- NOTE | 2019-02-22 07:04 | NUR ---
UNEVENTFUL NIGHT. PT SLEPT WELL WITH NO S/S OF PAIN OR DISCOMFORT NOTED. PT DID GET UP THROUGHOUT THE NIGHT TO USE THE BATHROOM. BED ALARM ON AND CALL LIGHT WITHIN REACH.
[2019-02-22 07:29] VITALS: BP 105/59; PULSE 65; TEMP 97.7
[2019-02-22 07:36] LABS: HEMOGLOBIN 11.7 g/dl (12.5-16.0); MEAN CELL VOLUME 117 fl (80.0-100.0); MEAN CORPUSCULAR HEMOGLOBIN 38 pg (27.0-31.0); MEAN CORPUSCULAR HGB CONC 32 g/dl (33.0-37.0); MEAN PLATELET VOLUME 9.2 fl (7.4-10.4); PLATELET COUNT 220 K/mm3 (130-400); REDCELL DISTRIBUTION WIDTH-CV 15.9 % (11.5-14.5)
[2019-02-22 07:39] LABS: HEMATOCRIT 36.4 % (37.0-47.0)
[2019-02-22 07:47] LABS: CALCIUM 8.4 mg/dL (8.4-10.2); CREATININE, serum 0.58 (0.52-1.25); POTASSIUM 3.1 mmol/L (3.4-5.0)
[2019-02-22 08:00] LABS: BAND 8 % (0-10); EOSINOPHIL 2 % (0-4); LYMPHOCYTE 15 % (20.0-51.0); NEUTROPHILS 68 % (42.0-75.2)
[2019-02-22 08:01] LABS: ANISOCYTOSIS 1+; HYPOCHROMIA 1+; PLATELET ESTIMATE NORMAL (NORMAL)
--- NOTE | 2019-02-22 08:05 | NUR ---
Patient is awake and alert in room. Is oriented x4. Speech is clear. Dressing changed to right forehead. Small laceration is noted 0.4x0.3mm observed. Bruising is also noted. Non stick dressing applied with tape to secure. Dressing changed to right elbow. Skin tear is noted, steri strips are intact. Area cleansed and non-stick dressing applied, kerlix wrapped around dressing and secured with tape. Patient states new dressing feels better than old one. Medications administered and were taken without difficulty. Pupils are not even but patient said that was normal for her and Dr. Davis is very aware of this. Sulfur Chloride Operator are equal and strong. Currently eating breakfast, feeding self, does have slight tremors which she stated is normal for her. States she only has pain to her right forehead, otherwise feels fine. Offered ice for pacemaker incision and she wishes to wait until she is finished with breakfast. Call light and personal items are within reach.
[2019-02-22] MEDS ORDERED: CEPHALEXIN500 M1 PO (11:25)
[2019-02-22] MEDS ORDERED: BETAPACE 80MG80 MG PO (11:27)
[2019-02-22 13:01] VITALS: BP 112/57; PULSE 73; TEMP 97.6
--- NOTE | 2019-02-22 16:30 | NUR ---
Patient discharge back to [facility]. Patient was seen by PT and OT. Patient did not require any home health services.
--- NOTE | 2019-02-22 17:52 | NUR ---
Patient discharged home at 1535. Prior to discharge education was given with verbalization of understanding. Personal belongings were collected and patient was assisted with dressing.
== END 2019-02-22 15:35 | disposition home or self-care (01) ==
LOC: COL.CAR 07:21 → MEDICAL 12:52 → COL.CAR 02-21 11:55 → MEDICAL 02-21 11:56 → COL.CAR 02-27 10:30
PROVIDERS: Nurse Practitioner; ADMIT Internal Medicine Cardiovascular Disease
DX: I48.0 Paroxysmal atrial fibrillation (principal); I49.5 Sick sinus syndrome; I48.92 Unspecified atrial flutter; M19.90 Unspecified osteoarthritis, unspecified site; E11.42 Type 2 diabetes mellitus with diabetic polyneuropathy; K21.9 Gastro-esophageal reflux disease without esophagitis; G20 Parkinson's disease; F32.9 Major depressive disorder, single episode, unspecified; F41.9 Anxiety disorder, unspecified; I11.0 Hypertensive heart disease with heart failure; I50.9 Heart failure, unspecified; K58.9 Irritable bowel syndrome, unspecified; I08.0 Rheumatic disorders of both mitral and aortic valves; A31.0 Pulmonary mycobacterial infection; D47.3 Essential (hemorrhagic) thrombocythemia; Z95.0 Presence of cardiac pacemaker; Z90.710 Acquired absence of both cervix and uterus; Z85.828 Personal history of other malignant neoplasm of skin; Z85.820 Personal history of malignant melanoma of skin; Z86.73 Personal history of transient ischemic attack (TIA), and cerebral infarction without residual deficits; Z88.1 Allergy status to other antibiotic agents; Z88.5 Allergy status to narcotic agent; Z88.8 Allergy status to other drugs, medicaments and biological substances; Z79.51 Long term (current) use of inhaled steroids; Z82.49 Family history of ischemic heart disease and other diseases of the circulatory system; Z81.8 Family history of other mental and behavioral disorders; Z79.01 Long term (current) use of anticoagulants
CPT/HCPCS: OP; C1785; C1894; C1898; G0378; J0690; J0780; J2250; J3010; J7030; Q9967

== ENCOUNTER 2019-03-09 05:57 | Day surgery (SDC) | payer MEDICARE, OTHER ==
[2019-03-09] VITALS (7 sets, daily range): BP systolic 86–120; BP diastolic 62–92; PULSE 75–87; TEMP 97.6
[~2019-03-09] VITALS: Ht 152.8 cm; Wt 46.6 kg
[2019-03-09 07:11] LABS: MEAN CELL VOLUME 116 fl (80.0-100.0); MEAN CORPUSCULAR HGB CONC 33 g/dl (33.0-37.0); MEAN PLATELET VOLUME 9.3 fl (7.4-10.4); PLATELET COUNT 289 K/mm3 (130-400); RED BLOOD COUNT 2.39 M/mm3 (4.10-5.30); REDCELL DISTRIBUTION WIDTH-CV 14.3 % (11.5-14.5)
[2019-03-09 07:17] LABS: HEMATOCRIT 27.7 % (37.0-47.0); HEMOGLOBIN 9.1 g/dl (12.5-16.0); MEAN CORPUSCULAR HEMOGLOBIN 38 pg (27.0-31.0)
[2019-03-09 07:20] LABS: CALCIUM 8.4 mg/dL (8.4-10.2); CREATININE, serum 0.47 (0.52-1.25); POTASSIUM 3.8 mmol/L (3.4-5.0)
[2019-03-09 07:29] LABS: INR 4.7 (0.8-3.0)
[2019-03-09] MEDS ORDERED: BETAPACE 80MG80 MG PO (07:32)
[2019-03-09] MEDS ORDERED: COUMADIN 5MG5 MG/TAB PO (07:36)
[2019-03-09 07:44] LABS: PROTHROMBIN TIME 58.2 SECONDS (9.7-12.8)
[2019-03-09] MEDS ORDERED: COUMADIN 22.5 MG/TAB PO (08:32)
--- NOTE | 2019-03-09 10:10 | NUR ---
Discharge instructions given to pt.pt verbalizes understanding.INT removed,atheter tip intact.Pt escorted out by SNF transportation.
== END 2019-03-09 10:22 | disposition home or self-care (01) ==
LOC: COL.CAR 05:57
PROVIDERS: Internal Medicine Cardiovascular Disease
DX: I48.91 Unspecified atrial fibrillation (principal); I11.0 Hypertensive heart disease with heart failure; I50.9 Heart failure, unspecified; J40 Bronchitis, not specified as acute or chronic; Z87.01 Personal history of pneumonia (recurrent); Z95.0 Presence of cardiac pacemaker; Z95.5 Presence of coronary angioplasty implant and graft; K21.9 Gastro-esophageal reflux disease without esophagitis; Z86.73 Personal history of transient ischemic attack (TIA), and cerebral infarction without residual deficits; F41.9 Anxiety disorder, unspecified; F32.9 Major depressive disorder, single episode, unspecified; G20 Parkinson's disease; I08.0 Rheumatic disorders of both mitral and aortic valves; Z90.710 Acquired absence of both cervix and uterus; Z85.820 Personal history of malignant melanoma of skin; Z85.828 Personal history of other malignant neoplasm of skin
CPT/HCPCS: J2370; J2704

== ENCOUNTER 2019-06-27 09:37 | Emergency (ER) | payer MEDICARE, OTHER ==
[~2019-06-27] VITALS: Ht 152.4 cm; Wt 41.8 kg
[2019-06-27 09:40] VITALS: TEMP 97.5
[2019-06-27 10:25] LABS: BASO % 0.3 % (0.0-2.0); EOS # 0.1 (0.0-0.7); EOS % 0.8 % (0-4.0); GRAN % 79.4 % (42.2-75.2); HEMATOCRIT 35.2 % (37.0-47.0); HEMOGLOBIN 11.4 g/dl (12.5-16.0); LYMPH # 0.7 (1.2-3.4); LYMPH % 9.7 % (20.0-51.0); MEAN CELL VOLUME 115 fl (80.0-100.0); MEAN CORPUSCULAR HEMOGLOBIN 37 pg (27.0-31.0); MEAN CORPUSCULAR HGB CONC 32 g/dl (33.0-37.0); MONO # 0.7 (0.1-0.6); PLATELET COUNT 337 K/mm3 (130-400); RED BLOOD COUNT 3.06 M/mm3 (4.10-5.30); REDCELL DISTRIBUTION WIDTH-CV 13.2 % (11.5-14.5)
[2019-06-27 10:38] LABS: ALANINE AMINOTRANSFERASE 6 U/L (9-52); ALBUMIN 3.6 gm/dL (3.5-5.0); ALKALINE PHOSPHATASE 111 U/L (50-136); ANION GAP 8 mmol/L (7-16); AST,SGOT 26 U/L (15-37); BILIRUBIN,TOTAL 0.4 mg/dL (0.0-1.0); BLOOD UREA NITROGEN 39 mg/dL (7-17); CALCIUM 9.1 mg/dL (8.4-10.2); CARBON DIOXIDE 32 mmol/L (22-30); CHLORIDE 100 mmol/L (98-107); CREATININE, serum 0.62 (0.52-1.25); GLUCOSE 113 mg/dL (74-106); POTASSIUM 4.2 mmol/L (3.4-5.0); SODIUM 139 mmol/L (137-145); TOTAL PROTEIN 7.3 gm/dL (6.4-8.2)
[2019-06-27 10:50] LABS: TROPONIN-I < 0.012 ng/mL (0.000-0.035)
[2019-06-27 11:23] LABS: COLLECTION METHOD CLEAN CATCH
[2019-06-27 11:35] LABS: PH 6 (5-8); SQUAMOUS EPITHELIAL 0-2 /hpf; URINE APPEARANCE Clear; URINE BACTERIA None Seen /hpf; URINE BILIRUBIN Negative (NEGATIVE); URINE BLOOD Negative (NEGATIVE); URINE COLOR Straw; URINE GLUCOSE Negative (NEGATIVE); URINE KETONE Negative (NEGATIVE); URINE LEUKOCYTE ESTERASE Negative (NEGATIVE); URINE NITRATE Negative (NEGATIVE); URINE PROTEIN(semi-quant) Negative (NEGATIVE); URINE RBC 0-2 /hpf; URINE UROBILINOGEN Negative (NEGATIVE)
[2019-06-27 16:45] VITALS: BP 98/74; PULSE 83
== END 2019-06-27 17:09 | disposition short-term general hospital (02) ==
LOC: COL.ER 09:37
PROVIDERS: Physician Assistant
DX: S02.91XA Unspecified fracture of skull, initial encounter for closed fracture (principal); S12.100A Unspecified displaced fracture of second cervical vertebra, initial encounter for closed fracture; I10 Essential (primary) hypertension; G20 Parkinson's disease; Z79.01 Long term (current) use of anticoagulants; Z79.51 Long term (current) use of inhaled steroids; W19.XXXA Unspecified fall, initial encounter; Y92.129 Unspecified place in nursing home as the place of occurrence of the external cause
CPT/HCPCS: J2270; J2405; J3010; L0174

== ENCOUNTER 2019-07-15 19:39 | Emergency (ER) | payer MEDICARE, OTHER ==
[~2019-07-15] VITALS: Ht 152.4 cm; Wt 42.3 kg
[2019-07-15 19:47] VITALS: TEMP 97.6
[2019-07-15 21:38] VITALS: BP 126/77; PULSE 84
== END 2019-07-15 21:38 | disposition home or self-care (01) ==
LOC: COL.ER 19:39
DX: K59.00 Constipation, unspecified (principal); I10 Essential (primary) hypertension; Z79.01 Long term (current) use of anticoagulants; Z79.51 Long term (current) use of inhaled steroids; Z87.81 Personal history of (healed) traumatic fracture

== ENCOUNTER 2019-08-21 13:16 | Emergency (ER) | payer MEDICARE, OTHER ==
[~2019-08-21] VITALS: Ht 152.4 cm; Wt 45.5 kg
[~2019-08-21 13:16] MED LIST changes: -ALBUTEROL0.83 MG/ML IH; -ATIVAN 0.50.5 MG/TAB PO; -BIOTENE MOIST44.3 ML PO; -DULCOLAX S10 MG/SUPP RC; -FENTANYL 50MCG TD; -GOOD NEIGH1200 MG/15 PO; -HALDOL 1MG T1 MG/TAB PO; -IMODIUM 2MG CAPS2 MG PO; -MIRALAX PA17 GM/Dose PO; -MYLANTA 150 ML150 M1 PO; -NORCO 325 MG-101 TAB PO; -ROXANOL 20MG20 MG/ML PO; -ROXICODONE 55 MG/TAB PO; -TYLENOL SU650 MG/SUP RC
[2019-08-21 13:17] VITALS: TEMP 97.7
[2019-08-21 13:39] LABS: BASO % 0.5 % (0.0-2.0); EOS % 0.5 % (0-4.0); GRAN # 6.4 (1.4-6.5); GRAN % 74.1 % (42.2-75.2); HEMOGLOBIN 10.6 g/dl (12.5-16.0); LYMPH # 0.8 (1.2-3.4); LYMPH % 9.7 % (20.0-51.0); MEAN CORPUSCULAR HEMOGLOBIN 34 pg (27.0-31.0); MEAN CORPUSCULAR HGB CONC 32 g/dl (33.0-37.0); MEAN PLATELET VOLUME 9.3 fl (7.4-10.4); MONO # 1.3 (0.1-0.6); MONO % 14.9 % (1.7-9.3); PLATELET COUNT 419 K/mm3 (130-400); RED BLOOD COUNT 3.15 M/mm3 (4.10-5.30); REDCELL DISTRIBUTION WIDTH-CV 14.6 % (11.5-14.5)
[2019-08-21 13:40] LABS: HEMATOCRIT 33.4 % (37.0-47.0); MEAN CELL VOLUME 106 fl (80.0-100.0)
[2019-08-21] MEDS ORDERED: ROXICODONE 55 MG/TAB PO (13:40)
[2019-08-21] MEDS ORDERED: HALDOL 1MG T1 MG/TAB PO ×2 (13:41→14:13)
[2019-08-21] MEDS ORDERED: NORCO 325 MG-101 TAB PO ×2 (13:41→14:21)
[2019-08-21] MEDS ORDERED: FENTANYL 50MCG TD (13:42)
[2019-08-21] MEDS ORDERED: ATIVAN 0.50.5 MG/TAB PO ×2 (13:42→14:10)
[2019-08-21 13:57] LABS: ALBUMIN 3.2 gm/dL (3.5-5.0); BILIRUBIN,TOTAL 0.7 mg/dL (0.0-1.0); CALCIUM 8.7 mg/dL (8.4-10.2); CREATININE, serum 0.51 (0.52-1.25); INR 1.5 (0.8-3.0); MAGNESIUM 1.8 mg/dL (1.6-2.3); PHOSPHOROUS 4.2 mg/dL (2.5-4.5); PROTHROMBIN TIME 18.1 SECONDS (9.7-12.8); TOTAL PROTEIN 6.3 gm/dL (6.4-8.2)
[2019-08-21 13:59] LABS: PARTIAL THROMBOPLASTIN TIME 28.5 SECONDS (26.0-37.0)
[2019-08-21] MEDS ORDERED: MELATONIN5 M1 PO (14:06)
[2019-08-21] MEDS ORDERED: MIRALAX PA17 GM/Dose PO (14:07)
[2019-08-21] MEDS ORDERED: TYLENOL SU650 MG/SUP RC (14:09)
[2019-08-21] MEDS ORDERED: ALBUTEROL0.83 MG/ML IH (14:10)
[2019-08-21] MEDS ORDERED: BIOTENE MOIST44.3 ML PO (14:11)
[2019-08-21] MEDS ORDERED: DULCOLAX S10 MG/SUPP RC (14:12)
[2019-08-21] MEDS ORDERED: IMODIUM 2MG CAPS2 MG PO (14:13)
[2019-08-21] MEDS ORDERED: GOOD NEIGH1200 MG/15 PO (14:16)
[2019-08-21] MEDS ORDERED: ROXANOL 20MG20 MG/ML PO (14:20)
[2019-08-21] MEDS ORDERED: MYLANTA 150 ML150 M1 PO (14:21)
[2019-08-21 14:39] LABS: COLLECTION METHOD CLEAN CATCH
[2019-08-21 14:46] LABS: MUCOUS Present /lpf; PH 5 (5-8); SQUAMOUS EPITHELIAL 0-2 /hpf; URINE APPEARANCE Clear; URINE BACTERIA None Seen /hpf; URINE BILIRUBIN Negative (NEGATIVE); URINE BLOOD Negative (NEGATIVE); URINE COLOR Amber; URINE GLUCOSE Negative (NEGATIVE); URINE KETONE Negative (NEGATIVE); URINE LEUKOCYTE ESTERASE Negative (NEGATIVE); URINE NITRATE Negative (NEGATIVE); URINE PROTEIN(semi-quant) 1+ (NEGATIVE)
[2019-08-21 15:03] LABS: ARTERIAL BLD GAS O2 SATURATION 95.6 % (92-100); ARTERIAL BLD GAS TCO2 CT 26.3; ARTERIAL BLOOD GAS BASE EXCESS 0.2 (-2-2); ARTERIAL BLOOD GAS PCO2 41.3 mmHg (35-45); ARTERIAL BLOOD GAS PO2 84.2 mmHg (80-100)
[2019-08-21 15:32] LABS: TROPONIN-I 0.031 ng/mL (0.000-0.035)
[2019-08-21 16:30] VITALS: BP 121/76; PULSE 115
== END 2019-08-21 16:30 | disposition home or self-care (01) ==
LOC: COL.ER 13:16
PROVIDERS: Emergency Medicine
DX: I48.91 Unspecified atrial fibrillation (principal); I50.9 Heart failure, unspecified; G20 Parkinson's disease; Z95.0 Presence of cardiac pacemaker

== ENCOUNTER → 2019-08-21 | Outpatient (CLI) | payer MEDICARE, OTHER ==
[~2019-08-21] MED LIST changes: +ALBUTEROL0.83 MG/ML IH; +ATIVAN 0.50.5 MG/TAB PO; +BIOTENE MOIST44.3 ML PO; +DULCOLAX S10 MG/SUPP RC; +FENTANYL 50MCG TD; +GOOD NEIGH1200 MG/15 PO; +HALDOL 1MG T1 MG/TAB PO; +IMODIUM 2MG CAPS2 MG PO; +MIRALAX PA17 GM/Dose PO; +MYLANTA 150 ML150 M1 PO; +NORCO 325 MG-101 TAB PO; +ROXANOL 20MG20 MG/ML PO; +ROXICODONE 55 MG/TAB PO; +TYLENOL SU650 MG/SUP RC
[2019-08-21 12:23] LABS: COLLECTION METHOD CATHETER
[2019-08-21 12:40] LABS: MUCOUS Present /lpf; PH 5 (5-8); SQUAMOUS EPITHELIAL 0-2 /hpf; URINE APPEARANCE Turbid; URINE BACTERIA None Seen /hpf; URINE BILIRUBIN Negative (NEGATIVE); URINE BLOOD Negative (NEGATIVE); URINE COLOR Amber; URINE GLUCOSE Negative (NEGATIVE); URINE KETONE Negative (NEGATIVE); URINE LEUKOCYTE ESTERASE Negative (NEGATIVE); URINE NITRATE Negative (NEGATIVE); URINE PROTEIN(semi-quant) 2+ (NEGATIVE); URINE UROBILINOGEN Negative (NEGATIVE)
== END ==
LOC: ZCOL.LAB 11:23
PROVIDERS: Internal Medicine
DX: F41.9 Anxiety disorder, unspecified (principal)